=== PATIENT | male | born 1965 | race Two or more races ===

== ENCOUNTER 2025-06-09 12:00 | Inpatient (IN) | payer OTHER ==
[~2025-06-09] VITALS: Ht 274.3 cm; Wt 68.0 kg
[2025-06-09] MEDS ORDERED: MELATONIN5 MG SL (13:02)
[2025-06-09] MEDS ORDERED: 5-HTP100 M1 PO (13:03)
[2025-06-09] MEDS ORDERED: CLONAZEPAM1 MG PO (13:04)
[2025-06-09] MEDS ORDERED: CLARITIN10 MG PO (13:04)
[2025-06-16] MEDS ORDERED: CEFTRIAXONE SODIUM 2,000 MG VIAL ONE (10:52)
[2025-06-16] MEDS ORDERED: METRONIDAZOLE/SODIUM CHLORIDE 500 MG/100 ML PIGGYBACK IV ONE ×2 (10:52→13:30)
[2025-06-16] MEDS ORDERED: CEFTRIAXONE SODIUM 2,000 MG VIAL IV ONE (13:30)
[2025-06-16] MEDS ORDERED: SUGAMMADEX SODIUM 200 MG/2 ML VIAL IV ONE (14:36)
[2025-06-16] MEDS ORDERED: 0.9 % SODIUM CHLORIDE 1,000 ML IV SCH (15:15)
[2025-06-16] MEDS ORDERED: MORPHINE SULFATE 4 MG/ML CARTRIDGE IV PRN (15:15)
[2025-06-16] MEDS ORDERED: OxyCODONE HCL 5 MG TABLET (ROXICODONE) PO PRN (15:15)
[2025-06-16] MEDS ORDERED: ONDANSETRON HCL 2 MG/ML VIAL IV PRN (15:15)
[2025-06-16] MEDS ORDERED: DEXTROSE 50 % IN WATER 0.5 G/ML DISP.SYRIN IV PRN (15:15)
[2025-06-16] MEDS ORDERED: HYOSCYAMINE SULFATE 0.125 MG TAB.SUBL SL SCH (17:00)
[2025-06-16] MEDS ORDERED: GABAPENTIN 300 MG CAPSULE PO SCH (17:00)
[2025-06-16] MEDS ORDERED: METRONIDAZOLE/SODIUM CHLORIDE 500 MG/100 ML PIGGYBACK IV SCH (17:00)
[2025-06-16] MEDS ORDERED: ACETAMINOPHEN 500 MG GEL..CAP PO ONE (19:24)
[2025-06-16] MEDS ORDERED: FAMOTIDINE/PF 20 MG/2 ML VIAL ONE (19:25)
[2025-06-16] MEDS ORDERED: CELECOXIB 200 MG CAPSULE PO ONE (19:25)
[2025-06-16 19:35] LABS: BASO % 0.1 % (0.1-1.2); EOS # 0.00 (0.04-0.54); EOS % 0.0 % (0.7-7.0); LYMPH # 0.45 (1.18-3.74); LYMPH % 2.8 % (19.3-53.1); MEAN PLATELET VOLUME 9.90 fl (9.4-12.4); MONO # 0.72 (0.24-0.82); MONO % 4.5 % (4.7-12.5); NEUT # 14.89 (1.56-6.13); NEUT % 92.2 % (34.0-71.1); RED CELL DISTRIBUTION WIDTH 12.4 % (11.6-14.4)
[2025-06-16] MEDS ORDERED: ACETAMINOPHEN 500 MG GEL..CAP PO SCH (20:00)
[2025-06-16 20:05] VITALS: BP 138/73; O2SAT 97
[2025-06-16 20:05] LABS: BUN CREA RATIO 10.0 (7.0-25.0); CREATININE SERUM 0.88 mg/dL (0.70-1.30); GFR 87.75; GLUCOSE FASTING 130.0 mg/dL (65-100); OSMOLALITY SERUM 280.0 MOSM/KG (275-295)
[2025-06-16] MEDS ORDERED: CELECOXIB 200 MG CAPSULE PO SCH (21:00)
[2025-06-16] MEDS ORDERED: FAMOTIDINE/PF 20 MG/2 ML VIAL IV PUSH SCH (21:00)
[2025-06-17 00:59] VITALS: BP 120/70; O2SAT 95
[2025-06-17 06:49] LABS: BASO % 0.2 % (0.1-1.2); EOS # 0.00 (0.04-0.54); EOS % 0.0 % (0.7-7.0); LYMPH # 0.82 (1.18-3.74); LYMPH % 5.4 % (19.3-53.1); MEAN PLATELET VOLUME 10.30 fl (9.4-12.4); MONO # 0.80 (0.24-0.82); MONO % 5.3 % (4.7-12.5); NEUT # 13.35 (1.56-6.13); NEUT % 88.6 % (34.0-71.1); RED CELL DISTRIBUTION WIDTH 12.4 % (11.6-14.4)
[2025-06-17 07:26] LABS: BUN CREA RATIO 10.0 (7.0-25.0); CREATININE SERUM 0.91 mg/dL (0.70-1.30); GFR 84.42; GLUCOSE FASTING 125.0 mg/dL (65-100); OSMOLALITY SERUM 281.0 MOSM/KG (275-295)
[2025-06-17 08:00] VITALS: BP 119/72; O2SAT 97
[2025-06-17] MEDS ORDERED: LORATADINE 10 MG TABLET PO SCH (09:00)
[2025-06-17 16:00] VITALS: BP 111/63; O2SAT 97
[2025-06-17] MEDS ORDERED: ENOXAPARIN SODIUM 40 MG/0.4 ML SYRINGE SUBCUTANEO SCH (17:00)
[2025-06-17] MEDS ORDERED: AMINOCAPROIC ACID 1,000 MG in 0.9 % SODIUM CHLORIDE 250 ML IV STA (23:16)
[2025-06-17] MEDS ORDERED: AMINOCAPROIC ACID 250 MG/ML VIAL IV SCH (23:30)
[2025-06-17 23:31] LABS: BASO % 0.3 % (0.1-1.2); EOS # 0.02 (0.04-0.54); EOS % 0.2 % (0.7-7.0); LYMPH # 1.27 (1.18-3.74); LYMPH % 9.7 % (19.3-53.1); MEAN PLATELET VOLUME 10.00 fl (9.4-12.4); MONO # 0.89 (0.24-0.82); MONO % 6.8 % (4.7-12.5); NEUT # 10.75 (1.56-6.13); NEUT % 82.5 % (34.0-71.1); RED CELL DISTRIBUTION WIDTH 12.6 % (11.6-14.4)
[2025-06-18 00:30] VITALS: BP 114/69; O2SAT 97
[2025-06-18 08:12] LABS: BASO % 0.3 % (0.1-1.2); EOS # 0.03 (0.04-0.54); EOS % 0.2 % (0.7-7.0); LYMPH # 0.75 (1.18-3.74); LYMPH % 6.1 % (19.3-53.1); MEAN PLATELET VOLUME 10.70 fl (9.4-12.4); MONO # 0.72 (0.24-0.82); MONO % 5.9 % (4.7-12.5); NEUT # 10.72 (1.56-6.13); NEUT % 87.2 % (34.0-71.1); RED CELL DISTRIBUTION WIDTH 12.6 % (11.6-14.4)
[2025-06-18 08:16] VITALS: BP 104/58; O2SAT 98
[2025-06-18 08:49] LABS: BUN CREA RATIO 13.0 (7.0-25.0); CREATININE SERUM 0.77 mg/dL (0.70-1.30); GFR 102.37; GLUCOSE FASTING 97.0 mg/dL (65-100); OSMOLALITY SERUM 288.0 MOSM/KG (275-295)
[2025-06-18] MEDS ORDERED: ENOXAPARIN SODIUM 40 MG/0.4 ML SYRINGE SUBCUTANEO SCH (09:00)
[2025-06-18] MEDS ORDERED: DEXTROSE 50 % IN WATER 0.5 G/ML DISP.SYRIN IV PRN (11:15)
[2025-06-18] MEDS ORDERED: 0.9 % SODIUM CHLORIDE 1,000 ML IV SCH (11:15)
[2025-06-18] MEDS ORDERED: MORPHINE SULFATE 4 MG/ML CARTRIDGE IV PRN (11:15)
[2025-06-18] MEDS ORDERED: ONDANSETRON HCL 2 MG/ML VIAL IV PRN (11:15)
[2025-06-18] MEDS ORDERED: OxyCODONE HCL 5 MG TABLET (ROXICODONE) PO PRN (11:15)
[2025-06-18] MEDS ORDERED: HYOSCYAMINE SULFATE 0.125 MG TAB.SUBL SL SCH (13:00)
[2025-06-18 13:05] VITALS: BP 122/73; O2SAT 99
[2025-06-18 13:09] LABS: BASO % 0.4 % (0.1-1.2); EOS # 0.04 (0.04-0.54); EOS % 0.3 % (0.7-7.0); LYMPH # 0.88 (1.18-3.74); LYMPH % 7.0 % (19.3-53.1); MEAN PLATELET VOLUME 10.30 fl (9.4-12.4); MONO # 0.70 (0.24-0.82); MONO % 5.6 % (4.7-12.5); NEUT # 10.81 (1.56-6.13); NEUT % 86.5 % (34.0-71.1); RED CELL DISTRIBUTION WIDTH 12.8 % (11.6-14.4)
[2025-06-18 13:39] LABS: BUN CREA RATIO 12.0 (7.0-25.0); CREATININE SERUM 0.75 mg/dL (0.70-1.30); GFR 105.52; GLUCOSE FASTING 122.0 mg/dL (65-100); OSMOLALITY SERUM 291.0 MOSM/KG (275-295)
[2025-06-18] MEDS ORDERED: ACETAMINOPHEN 500 MG GEL..CAP PO SCH (14:00)
[2025-06-18] MEDS ORDERED: POTASSIUM PHOS,M-BASIC-D-BASIC 3 MM/ML VIAL IV ONE (16:00)
[2025-06-18] MEDS ORDERED: METRONIDAZOLE/SODIUM CHLORIDE 500 MG/100 ML PIGGYBACK IV SCH (17:00)
[2025-06-18] MEDS ORDERED: GABAPENTIN 300 MG CAPSULE PO SCH (17:00)
[2025-06-18] MEDS ORDERED: FAMOTIDINE/PF 20 MG/2 ML VIAL IV PUSH SCH (21:00)
[2025-06-19 01:14] VITALS: BP 113/71; O2SAT 98
[2025-06-19 07:55] LABS: BASO % 0.4 % (0.1-1.2); EOS # 0.16 (0.04-0.54); EOS % 1.7 % (0.7-7.0); LYMPH # 1.13 (1.18-3.74); LYMPH % 11.9 % (19.3-53.1); MEAN PLATELET VOLUME 10.80 fl (9.4-12.4); MONO # 0.63 (0.24-0.82); MONO % 6.6 % (4.7-12.5); NEUT # 7.53 (1.56-6.13); NEUT % 79.0 % (34.0-71.1); RED CELL DISTRIBUTION WIDTH 12.7 % (11.6-14.4)
[2025-06-19 08:05] LABS: BUN CREA RATIO 8.0 (7.0-25.0); CREATININE SERUM 0.66 mg/dL (0.70-1.30); GFR 122.3; GLUCOSE FASTING 92.0 mg/dL (65-100); OSMOLALITY SERUM 284.0 MOSM/KG (275-295)
[2025-06-19 08:30] VITALS: BP 110/61; O2SAT 97
[2025-06-19] MEDS ORDERED: SOD FERRIC GLUC COMPLX/SUCROSE 62.5 MG in 0.9 % SODIUM CHLORIDE 50 ML IV SCH (09:00)
[2025-06-19 16:00] VITALS: BP 133/66; O2SAT 97
[2025-06-20 00:58] VITALS: BP 126/77; O2SAT 97
[2025-06-20 06:41] LABS: BASO % 0.7 % (0.1-1.2); EOS # 0.14 (0.04-0.54); EOS % 1.9 % (0.7-7.0); LYMPH # 1.38 (1.18-3.74); LYMPH % 18.9 % (19.3-53.1); MEAN PLATELET VOLUME 10.60 fl (9.4-12.4); MONO # 0.57 (0.24-0.82); MONO % 7.8 % (4.7-12.5); NEUT # 5.13 (1.56-6.13); NEUT % 70.4 % (34.0-71.1); RED CELL DISTRIBUTION WIDTH 12.6 % (11.6-14.4)
[2025-06-20 07:18] LABS: BUN CREA RATIO 11.0 (7.0-25.0); CREATININE SERUM 0.63 mg/dL (0.70-1.30); GFR 129.04; GLUCOSE FASTING 99.0 mg/dL (65-100); OSMOLALITY SERUM 283.0 MOSM/KG (275-295)
[2025-06-20 08:43] VITALS: BP 116/62; O2SAT 97
[2025-06-20] MEDS ORDERED: INTEGRA F CAPS1 EACH PO (10:31)
[2025-06-20] MEDS ORDERED: HYOSCYAMINE0.125 M1 SL (10:31)
[2025-06-20] MEDS ORDERED: PEPCID AC20 MG PO (10:32)
[2025-06-20] MEDS ORDERED: TRAM1TAB98 PO (10:33)
== END 2025-06-20 15:44 | disposition home or self-care (01) | DRG 330 ==
LOC: O/R 06-16 09:00 → SURH 06-16 09:00
PROVIDERS: Internal Medicine; Internal Medicine Geriatric Medicine; Surgery; ADMIT Surgery; ATTEND Surgery
PROC: 07BB4ZZ Excision of Mesenteric Lymphatic, Percutaneous Endoscopic Approach (ICD-10-PCS; 2025-06-16)
PROC: 07BC4ZZ Excision of Pelvis Lymphatic, Percutaneous Endoscopic Approach (ICD-10-PCS; 2025-06-16)
PROC: 0DTF4ZZ Resection of Right Large Intestine, Percutaneous Endoscopic Approach (ICD-10-PCS; principal; 2025-06-16 14:00)
PROC: 3E0H8GC Introduction of Other Therapeutic Substance into Lower GI, Via Natural or Artificial Opening Endoscopic (ICD-10-PCS; 2025-06-18)
PROC: 0W3P8ZZ Control Bleeding in Gastrointestinal Tract, Via Natural or Artificial Opening Endoscopic (ICD-10-PCS; 2025-06-18)
DX: D12.0 Benign neoplasm of cecum (principal); K62.5 Hemorrhage of anus and rectum; K91.841 Postprocedural hemorrhage of a digestive system organ or structure following other procedure; R59.0 Localized enlarged lymph nodes; D64.89 Other specified anemias; K64.8 Other hemorrhoids; D3A.8 Other benign neuroendocrine tumors

== ENCOUNTER 2025-07-14 18:33 | Inpatient (IN) | payer OTHER ==
[~2025-07-14] VITALS: Ht 175.3 cm; Wt 63.5 kg
[~2025-07-14 18:33] MED LIST: 5-HTP100 M1 PO; CLARITIN10 MG PO; CLONAZEPAM1 MG PO; HYOSCYAMINE0.125 M1 SL; INTEGRA F CAPS1 EACH PO; MELATONIN5 MG SL; PEPCID AC20 MG PO; TRAM1TAB98 PO
--- NOTE | 2025-07-14 19:58 | NUR ---
PACIENTE ALERTA Y ORIENTADO X 3. REFIERE SANGRADO RECTAL AL EVACUAR. INDICA 4 EVACUACION CON ABHINAV, FUE OPERADO POR DR AGUERO Jun Y LE REALIZARON COLONOSCOPIA DE EMERGENCIA, NO HABIA PRESENTADO HASTA HOY.
[2025-07-14] MEDS ORDERED: PANTOPRAZOLE SODIUM 40 MG/VIAL VIAL IV ONE (20:30)
[2025-07-14] MEDS ORDERED: 0.9 % SODIUM CHLORIDE 1,000 ML IV SCH (20:30)
--- NOTE | 2025-07-14 22:04 | NUR ---
SE EDUCA ACERCA DE TX ORDENADO, SE CANALIZA Y COLECTAN MUESTRAS DE LABORATORIO MEDIANTE MEDIDAS ASEPTICAS. SE MERA ENVASE DE UA Y OCCULT BLOOD.
[2025-07-14 22:21] LABS: BASO % 0.9 % (0.1-1.2); EOS # 0.12 (0.04-0.54); EOS % 2.2 % (0.7-7.0); LYMPH # 1.57 (1.18-3.74); LYMPH % 28.4 % (19.3-53.1); MEAN PLATELET VOLUME 10.10 fl (9.4-12.4); MONO # 0.47 (0.24-0.82); MONO % 8.5 % (4.7-12.5); NEUT # 3.30 (1.56-6.13); NEUT % 59.8 % (34.0-71.1); RED CELL DISTRIBUTION WIDTH 13.2 % (11.6-14.4)
[2025-07-14 22:22] LABS: URINE APPEARANCE Clear; URINE BILIRRUBIN Negative (NEGATIVE); URINE BLOOD Negative; URINE COLOR Yellow; URINE GLUCOSE Negative (NEGATIVE); URINE KETONE Negative (NEGATIVE); URINE LEUKOCYTE Negative; URINE NITRATE Negative; URINE PROTEIN 30 (NEGATIVE); URINE UROBILINOGEN 0.2 E.U./dl
[2025-07-14 22:23] LABS: ERYTHROCYTE SEDIMENTATION RATE 7 mm/hr (0-20)
[2025-07-14 22:25] LABS: URINE BACTERIA 39.5 uL (0.0-1933); URINE EPITHELIAL CELLS 4.3 uL (0.0-38.8); URINE RBC 6.7 uL (0.0-20.8); URINE WBC 14.0 uL (0.0-23.2)
[2025-07-14 22:36] LABS: COVID-19 AG NEGATIVE (NEGATIVE)
[2025-07-14 22:40] LABS: ob POSITIVE (NEGATIVE)
[2025-07-14 22:41] LABS: INR 0.96
[2025-07-14 22:43] LABS: URINE CAST 0.29 uL (0.0-1.40)
[2025-07-14 22:45] LABS: URINE MUCUS MODERATE; URINE SPERM MANY
[2025-07-14 22:46] LABS: ALT/SGPT 127.0 U/L (12-78); AST/SGOT 67.0 U/L (15-37); BILIRUBIN TOTAL 1.48 mg/dL (0.3-1.2); BUN CREA RATIO 14.0 (7.0-25.0); CREATININE SERUM 0.84 mg/dL (0.70-1.30); GFR 92.59; GLOBULINA 2.9 G/DL (2.4-3.5); GLUCOSE FASTING 109.0 mg/dL (65-100); OSMOLALITY SERUM 285.0 MOSM/KG (275-295)
[2025-07-14 22:46] LABS: TYPE CELLS SQUAMOUS
[2025-07-15] MEDS ORDERED: 0.9 % SODIUM CHLORIDE 1,000 ML IV SCH (07:30)
[2025-07-15] MEDS ORDERED: TRAMADOL HCL 50 MG TABLET PO PRN (07:30)
[2025-07-15] MEDS ORDERED: DICYCLOMINE HCL 20 MG TABLET PO PRN (08:15)
[2025-07-15] MEDS ORDERED: FAMOTIDINE/PF 20 MG/2 ML VIAL IV SCH (09:00)
[2025-07-15 09:33] VITALS: BP 130/80
[2025-07-15] MEDS ORDERED: levoFLOXacin IN DEXTROSE 5 % 500MG/100ML PIGGYBAG IV ONE (09:42)
[2025-07-15] MEDS ORDERED: METRONIDAZOLE/SODIUM CHLORIDE 500 MG/100 ML PIGGYBACK IV ONE (09:42)
[2025-07-15] MEDS ORDERED: FAMOTIDINE/PF 20 MG/2 ML VIAL ONE (09:43)
[2025-07-15] MEDS ORDERED: CLONAZEPAM 1 MG TABLET PO PRN (15:15)
[2025-07-15 15:54] VITALS: BP 119/72; O2SAT 100
[2025-07-15] MEDS ORDERED: GUAIFENESIN/DEXTROMETHORPHAN 100MG/10ML BLIST.PACK PO SCH (17:00)
[2025-07-15 17:14] VITALS: BP 133/75; O2SAT 97
[2025-07-15] MEDS ORDERED: GUAIFENESIN 600 MG TABLET.SA PO SCH (21:00)
[2025-07-16 00:32] VITALS: BP 99/56; O2SAT 98
[2025-07-16 06:48] LABS: BASO % 1.2 % (0.1-1.2); EOS # 0.15 (0.04-0.54); EOS % 2.9 % (0.7-7.0); LYMPH # 1.56 (1.18-3.74); LYMPH % 30.4 % (19.3-53.1); MEAN PLATELET VOLUME 10.20 fl (9.4-12.4); MONO # 0.51 (0.24-0.82); MONO % 9.9 % (4.7-12.5); NEUT # 2.84 (1.56-6.13); NEUT % 55.4 % (34.0-71.1); RED CELL DISTRIBUTION WIDTH 13.3 % (11.6-14.4)
[2025-07-16 08:00] VITALS: BP 113/68; O2SAT 99
[2025-07-16] MEDS ORDERED: FOLIC ACID 1 MG TABLET PO NR ×2 (08:45→12:30)
[2025-07-16] MEDS ORDERED: SOD FERRIC GLUC COMPLX/SUCROSE 62.5 MG/5 ML AMPUL IV SCH (09:00)
[2025-07-16 09:50] LABS: ALT/SGPT 75.0 U/L (12-78); AST/SGOT 25.0 U/L (15-37); BILIRUBIN TOTAL 1.53 mg/dL (0.3-1.2); BUN CREA RATIO 10.0 (7.0-25.0); CREATININE SERUM 0.86 mg/dL (0.70-1.30); GFR 90.11; GLOBULINA 2.2 G/DL (2.4-3.5); GLUCOSE FASTING 94.0 mg/dL (65-100); OSMOLALITY SERUM 283.0 MOSM/KG (275-295)
[2025-07-16] MEDS ORDERED: Cyanocobalamin/Mecobalamin 1 TAB.SL SL SCH (11:30)
[2025-07-16 16:01] VITALS: BP 107/76; O2SAT 99
[2025-07-17 00:11] VITALS: BP 104/65; O2SAT 98
[2025-07-17 07:53] LABS: BASO % 0.8 % (0.1-1.2); EOS # 0.16 (0.04-0.54); EOS % 3.1 % (0.7-7.0); LYMPH # 1.40 (1.18-3.74); LYMPH % 27.1 % (19.3-53.1); MEAN PLATELET VOLUME 10.40 fl (9.4-12.4); MONO # 0.46 (0.24-0.82); MONO % 8.9 % (4.7-12.5); NEUT # 3.10 (1.56-6.13); NEUT % 59.9 % (34.0-71.1); RED CELL DISTRIBUTION WIDTH 13.3 % (11.6-14.4)
[2025-07-17 08:00] VITALS: BP 104/62; O2SAT 98
[2025-07-17 08:19] LABS: ALT/SGPT 62.0 U/L (12-78); AST/SGOT 23.0 U/L (15-37); BILIRUBIN TOTAL 1.45 mg/dL (0.3-1.2); BILIRUBIN,CONJUGATED 0.28 mg/dL (0.0-0.2)
[2025-07-17] MEDS ORDERED: Cyanocobalamin/Mecobalamin 1 TAB.SL SL SCH (09:00)
[2025-07-17] MEDS ORDERED: FOLIC ACID 1 MG TABLET PO SCH (09:00)
[2025-07-17 09:49] LABS: COL EPI 115 SECONDS (82-175)
[2025-07-17] MEDS ORDERED: VANCOMYCIN HCL 125 MG CAPSULE PO SCH (14:00)
[2025-07-17 16:00] VITALS: BP 106/61; O2SAT 97
[2025-07-17] MEDS ORDERED: LACTOBACILLUS ACIDOPHILUS 1 CAP CAP PO SCH (17:00)
[2025-07-17] MEDS ORDERED: HYOSCYAMINE SULFATE 0.125 MG TAB.SUBL SL STA (19:29)
[2025-07-17] MEDS ORDERED: HYOSCYAMINE SULFATE 0.125 MG TAB.SUBL SL PRN (19:45)
[2025-07-18 00:15] VITALS: BP 102/63; O2SAT 99
[2025-07-18 07:00] LABS: BASO % 0.9 % (0.1-1.2); EOS # 0.22 (0.04-0.54); EOS % 4.1 % (0.7-7.0); LYMPH # 1.83 (1.18-3.74); LYMPH % 33.8 % (19.3-53.1); MEAN PLATELET VOLUME 9.90 fl (9.4-12.4); MONO # 0.48 (0.24-0.82); MONO % 8.9 % (4.7-12.5); NEUT # 2.83 (1.56-6.13); NEUT % 52.1 % (34.0-71.1); RED CELL DISTRIBUTION WIDTH 13.2 % (11.6-14.4)
[2025-07-18 08:01] LABS: BUN CREA RATIO 6.0 (7.0-25.0); CREATININE SERUM 0.98 mg/dL (0.70-1.30); GFR 77.5; GLUCOSE FASTING 92.0 mg/dL (65-100); OSMOLALITY SERUM 284.0 MOSM/KG (275-295)
[2025-07-18 08:37] VITALS: BP 118/75; O2SAT 98
[2025-07-18 17:02] VITALS: BP 107/74; O2SAT 98
[2025-07-18] MEDS ORDERED: GUAIFENESIN/DEXTROMETHORPHAN 1 TAB TABLET PO ONE (20:58)
[2025-07-19 00:30] VITALS: BP 109/73; O2SAT 98
[2025-07-19] MEDS ORDERED: INTEGRA F CAPS1 EACH PO (07:23)
[2025-07-19] MEDS ORDERED: DICY20TA PO (07:23)
[2025-07-19] MEDS ORDERED: VANCOMYCIN HCL125 MG PO (07:27)
[2025-07-19 08:47] VITALS: BP 122/70; O2SAT 98
== END 2025-07-19 18:52 | disposition home or self-care (01) | DRG 378 ==
LOC: ER 18:34 → SEC-K 07-15 07:30 → SURH 07-15 07:30
PROVIDERS: Internal Medicine Geriatric Medicine; Student in an Organized Health Care Education/Training Program; ADMIT Surgery; ATTEND Surgery
PROC: 8E0ZXY6 Isolation (ICD-10-PCS; principal; 2025-07-14)
PROC: BW21YZZ Computerized Tomography (CT Scan) of Abdomen and Pelvis using Other Contrast (ICD-10-PCS; 2025-07-14)
PROC: 8E0ZXY6 Isolation (ICD-10-PCS; 2025-07-17)
DX: K62.5 Hemorrhage of anus and rectum (principal); A04.72 Enterocolitis due to Clostridium difficile, not specified as recurrent; E80.4 Gilbert syndrome; D64.89 Other specified anemias; J06.9 Acute upper respiratory infection, unspecified; D12.0 Benign neoplasm of cecum

== ENCOUNTER 2025-08-02 20:32 | Emergency (ER) | payer OTHER ==
[~2025-08-02] VITALS: Ht 175.3 cm; Wt 65.8 kg
[~2025-08-02 20:32] MED LIST changes: +DICY20TA PO; +VANCOMYCIN HCL125 MG PO
[2025-08-02 21:22] VITALS: BP 129/75; O2SAT 99
[2025-08-02] MEDS ORDERED: 0.9 % SODIUM CHLORIDE 1,000 ML IV SCH (23:00)
[2025-08-03 02:58] LABS: BASO % 0.7 % (0.1-1.2); EOS # 0.04 (0.04-0.54); EOS % 0.6 % (0.7-7.0); LYMPH # 1.69 (1.18-3.74); LYMPH % 25.0 % (19.3-53.1); MEAN PLATELET VOLUME 9.60 fl (9.4-12.4); MONO # 0.48 (0.24-0.82); MONO % 7.1 % (4.7-12.5); NEUT # 4.47 (1.56-6.13); NEUT % 66.2 % (34.0-71.1); RED CELL DISTRIBUTION WIDTH 13.4 % (11.6-14.4)
[2025-08-03 03:09] LABS: ERYTHROCYTE SEDIMENTATION RATE 7 mm/hr (0-20)
[2025-08-03 03:17] LABS: ALT/SGPT 82 U/L (12-78); AST/SGOT 28 U/L (15-37); BILIRUBIN TOTAL 1.54 mg/dL (0.3-1.2); BUN CREA RATIO 22 (7.0-25.0); CREATININE SERUM 0.90 mg/dL (0.70-1.30); GFR 85.50; GLOBULINA 3.2 G/DL (2.4-3.5); GLUCOSE FASTING 100 mg/dL (65-100); OSMOLALITY SERUM 290 MOSM/KG (275-295)
[2025-08-03 03:19] LABS: INR 0.99
[2025-08-03 03:26] LABS: URINE APPEARANCE Clear; URINE BILIRRUBIN Negative (NEGATIVE); URINE BLOOD Negative; URINE COLOR Yellow; URINE GLUCOSE Negative (NEGATIVE); URINE KETONE Trace (NEGATIVE); URINE LEUKOCYTE Negative; URINE NITRATE Negative; URINE PROTEIN Negative (NEGATIVE); URINE UROBILINOGEN 0.2 E.U./dl
[2025-08-03 03:29] LABS: URINE BACTERIA 3.5 uL (0.0-1933); URINE CAST 0.00 uL (0.0-1.40); URINE EPITHELIAL CELLS 0.9 uL (0.0-38.8); URINE RBC 1.7 uL (0.0-20.8); URINE WBC 1.0 uL (0.0-23.2)
[2025-08-03 08:09] LABS: BASO % 0.9 % (0.1-1.2); EOS # 0.02 (0.04-0.54); EOS % 0.3 % (0.7-7.0); LYMPH # 1.21 (1.18-3.74); LYMPH % 20.7 % (19.3-53.1); MEAN PLATELET VOLUME 9.50 fl (9.4-12.4); MONO # 0.39 (0.24-0.82); MONO % 6.7 % (4.7-12.5); NEUT # 4.16 (1.56-6.13); NEUT % 71.1 % (34.0-71.1); RED CELL DISTRIBUTION WIDTH 13.4 % (11.6-14.4)
== END 2025-08-03 08:30 | disposition home or self-care (01) ==
LOC: ER 20:32
PROVIDERS: General Practice; Physician Assistant Medical
DX: K62.5 Hemorrhage of anus and rectum (principal); K58.8 Other irritable bowel syndrome; C18.0 Malignant neoplasm of cecum; Z93.4 Other artificial openings of gastrointestinal tract status